=== PATIENT | female | born 1995 | race Caucasian/White ===

== ENCOUNTER 2016-11-29 11:05 | Emergency (ER) | payer BC ==
[~2016-11-29] VITALS: Ht 170.2 cm; Wt 62.1 kg
[2016-11-29 11:18] VITALS: BP 123/91; TEMP 36.9; Ht 170.2 cm; Wt 62.1 kg
[2016-11-29] MEDS ORDERED: BCPILLS PO (11:32)
--- NOTE | 2016-11-29 12:13 | EMERGENCY ROOM VISIT NOTE ---
ED Visit Note First contact with patient: 11:22 CHIEF COMPLAINT: Foot pain HISTORY OF PRESENT ILLNESS: This 21-year-old female patient presents to the emergency department ambulatory complaining of swelling and pain in the left foot at rest and worse with weight bearing. The patient was running with [employer] and stepped off the sidewalk and injured her left foot. The patient rates the pain as sharp and 8/10. The patient has no relief of the pain. The patient is non-able to walk. No numbness or weakness. No ankle pain. There are no lacerations of the foot. The patient is able to move all of their toes and their ankle without pain. Patient has had previous injury to this foot. The patient reports a previous fracture to the left foot. She states there was questionable extra navicular may not have healed correctly. REVIEW OF SYSTEMS: GENERAL: A 6 system review of systems was completed with positives and pertinent negatives in the HPI. ALLERGIES: No known drug allergies MEDICATIONS: None PMH: None SOCIAL HISTORY: The patient was locally. She is a student PHYSICAL EXAM: Vital Signs: Reviewed Nurse's notes, vital signs stable. GENERAL : This is a 21-year-old female, in no acute distress, but appears in pain, well- developed, well-nourished. MUSCULOSKELETAL: There is no visual deformity of the left foot. There is a palpable area to the left medial foot in the area of the navicular that is tender and swollen. There is no warmth. There is tenderness and swelling over the dorsal aspect of the left foot. The range of motion of the left foot is mildly limited secondary to pain. There is no tenderness over the plantar fascia. Dorsi flexion 5/5 and Plantar flexion 5/5. There is mild tenderness to palpation to the ankle. The skin is intact and there are no lacerations or puncture wounds. Dorsalis pedis pulse 2+. Capillary refill less than 2 seconds. EMERGENCY DEPARTMENT COURSE: I examined the patient. An X-ray of the left and ankle foot was reviewed by myself and radiology and reveals no acute fracture. The patient was placed in a fracture boot. She should follow-up with orthopedics next week if symptoms are not improving. She should return to the ER with worsening symptoms. And instructed on the use of crutches. The patient was discharged home in good condition. LEFT ANKLE 3 VIEWS CLINICAL HISTORY: Left ankle injury. FINDINGS: 3 views of the left ankle are obtained. No prior studies are available for comparison at the time of dictation. The skeletal structures are well mineralized. No fracture is seen. The ankle mortise is intact. No significant joint effusion is identified. The overlying soft tissues are normal as visualized. IMPRESSION: No acute bony abnormality is seen in the left ankle. LEFT FOOT 3 VIEWS HISTORY: Left foot pain, injury COMPARISON: None. FINDINGS: There is no fracture or dislocation. Soft tissues are unremarkable. No radiopaque foreign bodies. Incidental is made of an os navicularis. IMPRESSION: No fractures. DISCHARGE INSTRUCTION:Motrin 600 mg every 6-8 hours or moderate pain Use the walking boot when up and about with crutches; weight bearing as tolerated Ice and elevation frequently over the next 24-48 hours Contact orthopedics to schedule a follow-up appointment if no improvement in 5- 7 days Return with worsening symptoms Current/Historical Medications Scheduled Control Pills ( Control Pills), 1 TAB PO DAILY Allergies Coded Allergies: No Known Allergies (Unverified , 11/29/16) Vital Signs Date Time Temp Pulse Resp B/P Pulse Ox O2 Delivery O2 Flow Rate FiO2 11/29/16 12:47 91 16 100 11/29/16 11:18 36.9 82 18 123/91 99 Room Air Departure Information Impression Primary Impression: Foot sprain Dispostion Home / Self-Care Condition GOOD Referrals No Doctor, Assigned (PCP) Ryan Stokes MD Forms HOME CARE DOCUMENTATION FORM, IMPORTANT VISIT INFORMATION, School Instructions Return To School: 1 day Additional Instructions: Please excuse Jodee from [employer] PT on november Patient Instructions ED Sprain Foot, [facility] Health Problem Qualifiers Primary Impression: Foot sprain Encounter type: initial encounter Laterality: left Qualified Codes: S93.602A - Unspecified sprain of left foot, initial encounter
--- NOTE | 2016-11-29 12:20 | DIAGNOSTIC IMAGING REPORT ---
LEFT FOOT 3 VIEWS HISTORY: Left foot pain, injury COMPARISON: None. FINDINGS: There is no fracture or dislocation. Soft tissues are unremarkable. No radiopaque foreign bodies. Incidental is made of an os navicularis. IMPRESSION: No fractures. Electronically signed by: Maciel Anthony M.D. 11/29/2016 12:18 PM Dictated Date/Time: 11/29/2016 12:14 PM
[2016-11-29 12:47] VITALS: PULSE 91; O2SAT 100
== END 2016-11-29 12:48 | disposition home or self-care (01) ==
LOC: C.EDB 11:07 → C.EDD 12:48
DX: S93.602A Unspecified sprain of left foot, initial encounter (principal); W10.1XXA Fall (on)(from) sidewalk curb, initial encounter; Y93.02 Activity, running; Z79.3 Long term (current) use of hormonal contraceptives

== ENCOUNTER → 2016-12-11 | Outpatient (CLI) | payer BC ==
[~2016-12-11] MED LIST: BCPILLS PO
== END | disposition home or self-care (01) ==
LOC: C.RDSM 12:45
PROVIDERS: ATTEND Orthopaedic Surgery Sports Medicine
DX: Q74.2 Other congenital malformations of lower limb(s), including pelvic girdle (principal)